=== PATIENT | male | born 1975 | race Caucasian/White ===

== ENCOUNTER 2022-08-10 14:39 | Outpatient (CLI) | payer BC, SELFPAY ==
--- NOTE | 2022-08-10 15:00 | CRLHL7_ITS ---
For Patients: As a result of the Century Cures Act, medical imaging exams and procedure reports are released immediately into your electronic medical record. You may view this report before your referring provider. If you have questions, please contact your health care provider. Indication: Umbilical pain and lump Technique: Ultrasound abdomen umbilical hernia Comparison: None Findings: Probable right-sided umbilical hernia with a 1.2 centimeter break in the he fascia. Impression: Probable right-sided umbilical hernia with a 1.2 centimeter break in the fascia Dictated by Tevin Al MD @ 08/10/2022 3:54:44 PM (Electronically Signed)
== END 2022-08-10 14:40 | disposition home or self-care (01) ==
PROVIDERS: PCP Family Medicine; Visit Provider Nurse Practitioner Family
DX: R10.9 Unspecified abdominal pain (principal); R19.00 Intra-abdominal and pelvic swelling, mass and lump, unspecified site
CPT/HCPCS: 76705

== ENCOUNTER 2022-08-24 13:35 | Outpatient (CLI) | payer BC, SELFPAY ==
[2022-08-24 22:15] LABS: Chloride* 105 mmol/L (96-114); Potassium* 4.9 mmol/L (3.6-5.1); Sodium* 140 mmol/L (135-149)
[2022-08-24 22:18] LABS: Blood Urea Nitrogen* 22 mg/dL (5-24); Carbon Dioxide* 30 mmol/L (20-32); Creatinine* 0.8 mg/dL (0.5-1.5); Estimated Glomerular Filt Rate 111 ml/min
[2022-08-24 22:19] LABS: Calcium* 9.4 mg/dL (8.4-10.6); Glucose* 97 mg/dL (60-115)
== END 2022-08-24 13:36 | disposition home or self-care (01) ==
LOC: FRMREF 13:38
PROVIDERS: PCP Family Medicine; Visit Provider Family Medicine
DX: Z01.818 Encounter for other preprocedural examination (principal); K42.9 Umbilical hernia without obstruction or gangrene
CPT/HCPCS: 80048

== ENCOUNTER 2022-08-31 06:19 | Day surgery (SDC) | payer BC, SELFPAY ==
[2022-08-31] VITALS (7 sets, daily range): BP systolic 113–135; BP diastolic 68–85; PULSE 56–63; RESP 16; TEMP 36.4–36.7; O2SAT 91–98; BMI 28.8
[2022-08-31] MEDS: LACTATED RINGERS 1000 ML 1,000 ML 100 ML IV (06:50)
[2022-08-31] MEDS: SODIUM CHLORIDE 0.9 % (FLUSH) 10 ML SYRINGE IVF (06:50)
--- NOTE | 2022-08-31 06:58 | SUR.PREOP ---
HOME COVID TEST NEGATIVE.
[2022-08-31] MEDS: CEFAZOLIN 1 GM inj IVP (07:54)
[2022-08-31] MEDS: BUPIVACAINE 0.25% 30 ML INJECTION (08:13)
--- NOTE | 2022-08-31 08:33 | P.GSOP_ITS ---
Operative Note Date of procedure: 08/31/22 Pre-op diagnosis: Umbilical hernia Post-op diagnosis: same Type of Procedure: Open umbilical hernia repair Procedure Description: After discussing the risks and benefits of the procedure, the patient signed informed consent.? The operative site was marked and the patient was brought to the operating room and placed on the operating table in supine position.? Care was taken to pad the patient's pressure points.?? The patient was then given sedation by anesthesia.?? The operative site was then prepped and draped in the usual sterile fashion.? A time-out was then performed. Local anesthetic was injected into the fascia, skin and subcutaneous tissues. A curvilinear incision was made at the umbilicus. Dissection was carried down into the subcutaneous tissue using cautery. The hernia sac was encountered and care was taken to not enter it. Dissection was taken down to the fascia, and the umbilical stalk was carefully dissected off of the hernia sac. The fascial defect was less than 1 cm and containing a small amount of fat. Because of the small size of the hernia, it was closed with 0 Nurolon suture in a vest-over- pants fashion. The umbilicus was reapproximated to the fascia with Vicryl. The skin was then closed with running absorbable suture. A sterile dressing was then applied. ? The patient was then woken and transported to the recovery area in stable condition. ? The patient tolerated the procedure well. Indications: The patient is a 47-year-old male who noted some firmness in his umbilicus. He was seen in urgent care an ultrasound showed a possible small fat containing umbilical hernia. He had significant pain with this which was limiting his activity and so after discussion of options he elected to proceed with repair. Findings: Small less than 1 cm fascial defect containing fat. Anesthesia: MAC Surgeon: Mehreen Holt MD Estimated blood loss (mL): 1 Condition: stable Disposition: same day
--- NOTE | 2022-08-31 08:47 | W.ANESCHARGE ---
Anesthesia Charges Start Date/Time Anesthesia Start Date: 08/31/22 Anesthesia Start Time: 07:48 Stop Date/Time Anesthesia Stop Date: 08/31/22 Anesthesia Stop Time: 08:44 Summary Emergency: No
[2022-08-31] MEDS: ACETAMINOPHEN 325 MG TABLET 650 MG PO (09:39)
== END 2022-08-31 10:25 | disposition home or self-care (01) ==
PROVIDERS: PCP Family Medicine; Visit Provider Surgery
PROC: (CPT 49591; principal; 2022-08-31 07:30)
DX: K42.9 Umbilical hernia without obstruction or gangrene (principal)
CPT/HCPCS: 49591; 00830; A9270; J0690; J2250; J2405; J2704; J3010; J3490; J7120

== ENCOUNTER 2023-11-19 18:04 | Emergency (ER) | payer BC, SELFPAY ==
[2023-11-19 18:17] VITALS: BP 135/85; PULSE 73; RESP 18; TEMP 36.4; O2SAT 99; BMI 28.1
--- NOTE | 2023-11-19 19:20 | CT_ITS ---
Patient: MARY WORLEY Facility:?[facility] Patient ID:?[id number] Site Patient [id number]:?[id number]. Site :?[id number] Study:?CT-Abdomen/Pelvis w/iv-11/19/2023 7:45:25 PM Ordering Physician:JHOANA Final Report: INDICATION: Left lower quadrant pain. TECHNIQUE: CT of the abdomen and pelvis acquired with 91 cc Isovue 370 IV contrast. Coronal and sagittal reconstructions. COMPARISON: None. FINDINGS: The liver, gallbladder, spleen, pancreas, and adrenal glands are negative. No biliary dilation. Hepatic and portal veins are patent. Symmetric enhancement of the kidneys. No hydronephrosis or ureteral dilation. No obstructing urinary calculi identified. No bladder wall thickening. Nonenlarged prostate gland. No small bowel dilation. There is diffuse colonic wall thickening and pericolonic fat stranding greatest in the ascending and transverse colon. Findings are compatible with a nonspecific colitis. Fluid throughout the colon which can be seen with diarrhea. Negative appendix. No intraperitoneal free air or fluid. No lymphadenopathy. The lung bases are clear. The bones are unremarkable. IMPRESSION: Diffuse inflammatory changes of the colon compatible with a nonspecific colitis. Please note that all CT scans at this facility use dose modulation, iterative reconstruction, and/or weight-based dosing when appropriate to reduce radiation dose to as low as reasonably achievable. Dictated by Brittney Jeffries MD @ 11/19/2023 8:07:29 PM Signed by:?Brittney Jeffries MD @11/19/2023 8:07:29 PM (Electronic Signature)
--- NOTE | 2023-11-19 19:21 | ED_ITS ---
HPI - General Adult General Chief complaint: Diarrhea Stated complaint: Abdominal pain Time Seen by Provider: 11/19/23 19:10 History of Present Illness HPI narrative: This 48-year-old male comes in reporting abdominal pain with diarrhea. He reports some severe abdominal cramps with a baseline constant pain that began this morning. He is also had some diarrhea and reports little bit of blood he noted in the diarrhea occasionally today. He had wisdom teeth removed a week or so ago and has been taking an antibiotic and did have a few small episodes of diarrhea related to this. His symptoms today however are much more pronounced. He did measure his temperature and states that the highest that he measured was 100? F. he did have some nausea this morning but no vomiting. Related Data Home Medications Medication Instructions Recorded Confirmed amoxicillin 875 mg tablet 875 mg PO BID 11/13/23 11/13/23 metronidazole 250 mg tablet mg PO BID 11/13/23 11/13/23 Allergies Allergy/AdvReac Type Severity Reaction Status Date / Time No Known Drug Allergies Allergy Verified 07/20/23 09:17 Review of Systems Status of ROS: Reports: 10 or more systems reviewed and unremarkable except as noted in History and below Narrative: Constitutional: No fevers, no weight gain or loss. Eyes: No discharge. No vision changes. HENT: No congestion, no sore throat, no ear pain. Cardiovascular: No chest pain, no palpitations. Respiratory: No shortness of breath, no wheezes, no cough. Gastrointestinal: Abdominal pain with diarrhea as described above. Genitourinary: No dysuria, no hematuria. Musculoskeletal: Normal range of motion. Skin: No rashes, no pruritis. Neurological: No dizziness, weakness, sensory change, speech change. Endo/Heme/Allergies: No bruising or bleeding. No polydipsia. Pysch: no suicidality, no anxiety, no insomnia. All other systems reviewed and are negative. 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 He does not currently drink alcohol. 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 Smoking Status: Former smoker What tobacco products do you use: cigarettes Smoking quit date/years: <= 15 years ago Do you use any of these nicotine containing products: None How often do you have a drink containing alcohol: never How often do you have six or more drinks on one occasion: Never AUDIT-C Alcohol total score: 0 Non-prescribed substance use: denies use Caffeine: Yes (daily) Exam Narrative: Exam Narrative: Constitutional: Well-developed, well-nourished, no acute distress. HEENT: Normocephalic, atraumatic. Neck: Normal range of motion. Nontender. Supple. Heart: Regular. No murmurs. Normal rate. Intact distal pulses. Lungs: Clear to auscultation. No chest discomfort. No wheezes, rhonchi, or rales. Abdomen: Normal bowel sounds. Tenderness in the left abdomen and left lower quadrant. No rebound tenderness. Genitalia: Deferred. Back: No midline tenderness. Normal range of motion. Extremities: Normal range of motion. No injury. Skin: Intact. No rash. Warm. No erythema or pallor. Neurologic: No altered sensation. No weakness. Alert and oriented. Psychiatric: No suicidality. No anxiety or depression. No insomnia. Nursing notes and vitals signs are reviewed. Const: Vital Signs, click to edit/add: Vital Signs - 24 hr 11/19/23 18:17 11/19/23 19:26 11/19/23 20:32 Temperature 97.5 F L 98.2 F Pulse Rate [Right Pulse Oximeter] 73 71 Respiratory Rate 18 16 Blood Pressure [Ri ght Upper Arm] 135/85 140/88 H Pulse Oximetry 99 99 Oxygen Delivery Me thod Room Air Room Air Course Vital Signs Vital signs: Initial Vital Signs Temperature 97.5 F L 11/19/23 18:17 Temperature Source Temporal Artery Scan 11/19/23 18:17 Pulse Rate 73 11/19/23 18:17 Respiratory Rate 18 11/19/23 18:17 Blood Pressure 135/85 11/19/23 18:17 Blood Pressure Mean 101 11/19/23 18:17 Blood Pressure Position Sitting 11/19/23 18:17 Pulse Oximetry 99 11/19/23 18:17 Oxygen Delivery Method Room Air 11/19/23 18:17 Vital Signs Temperature 97.5 F L 11/19/23 18:17 Pulse Rate 73 11/19/23 18:17 Respiratory Rate 18 11/19/23 18:17 Blood Pressure 135/85 11/19/23 18:17 Pulse Oximetry 99 11/19/23 18:17 Oxygen Delivery Method Room Air 11/19/23 18:17 Temperature 98.2 F 11/19/23 20:32 Pulse Rate 71 11/19/23 19:26 Respiratory Rate 16 11/19/23 19:26 Blood Pressure 140/88 H 11/19/23 19:26 Pulse Oximetry 99 11/19/23 19:26 Oxygen Delivery Method Room Air 11/19/23 19:26 Medications Administered Medications: Generic Name Dose Route Start Last Admin Trade Name Freq PRN Reason Stop Dose Admin Sodium Chloride 1,000 mls @ 1,000 mls/hr 11/19/23 20:30 11/19/23 20:33 0.9 % Sodium Chloride 1000 Ml IV 11/19/23 21:29 Infused .Q1H JORDI Infusion Ketorolac Tromethamine 30 mg 11/19/23 19:20 11/19/23 19:25 Ketorolac 30 Mg/Ml Inj IVP 11/19/23 19:21 30 mg ONCE ONE Administration Ondansetron HCl 4 mg 11/19/23 19:20 11/19/23 19:25 Ondansetron 2 Mg/Ml Inj IVP 11/19/23 19:21 4 mg ONCE ONE Administration Medical Decision Making MDM Narrative Medical decision making narrative: This patient comes in with diarrhea and abdominal pain as described above. An IV was established where he did receive a L of normal saline along with Toradol 30 mg, Zofran 4 mg. Labs are obtained and returned with reassuring findings. Additionally CT scan of the abdomen and pelvis returns with no acute findings to explain his symptoms. This patient more likely has a gastroenteritis. He states that he is feeling much better. He is okay to be discharged home. He did receive [facility] prescriptions for Toradol and Zofran. Lab Data Labs: Lab Results 03/25/24 Range/Units 19:15 WBC 10.54 (4.50-11.00) K/uL RBC 5.02 (4.30-5.90) m/uL Hgb 15.8 (13.5-17.5) gm/dL Hct 47.1 (37.0-53.0) % MCV 94 (80-100) fL MCH 32 (26-34) pg MCHC 34 (32-36) gm/dL RDW Coeff of Tamera 12.3 (11.5-15.5) % Plt Count 331 (140-440) K/uL Neut % (Auto) 81.5 H (42.0-72.0) % Lymph % (Auto) 11.3 L (20-44) % Runnels % (Auto) 6.2 (0.0-11.0) % Eos % (Auto) 0.5 (0.0-7.0) % Baso % (Auto) 0.4 (0.0-3.0) % Neut # (Auto) 8.60 H (1.7-7.0) K/uL Lymph # (Auto) 1.20 (0.90-2.90) K/uL Runnels # (Auto) 0.70 (0.00-0.90) K/UL Eos # (Auto) 0.05 (0.00-0.50) K/uL Baso # (Auto) 0.04 (0.00-0.30) K/uL Abs Immat Gran (auto) 0.01 (0.00-0.30) K/uL Imm/Tot Granulo (auto) 0.1 % Sodium 139 (135-149) mmol/L Potassium 4.2 (3.6-5.1) mmol/L Chloride 104 (96-114) mmol/L Carbon Dioxide 23 (20-32) mmol/L Anion Gap 12 (7-15) mEq/L BUN 14 (5-24) mg/dL Creatinine 0.8 (0.5-1.5) mg/dL Estimated Creat Clear 111.63 Estimated GFR 111 ml/min Glucose 130 H (60-115) mg/dL Calcium 9.9 (8.4-10.6) mg/dL Discharge Plan Discharge Clinical Impression: Gastroenteritis Patient Disposition: Home, Self-Care Condition: Improved Additional Instructions: Take medications as needed and directed. Follow up with or return if worsening. Prescriptions: No Action amoxicillin 875 mg tablet 875 mg PO BID metronidazole 250 mg tablet PO BID Follow Up/Referrals: Jimena Sage MD [Primary Care Provider] - Stand Alone Forms: [employer] Info Instructions
[2023-11-19] MEDS: ONDANSETRON 2 MG/ML inj 4 MG IVP (19:25)
[2023-11-19] MEDS: KETOROLAC 30 MG/ML inj IVP (19:25)
[2023-11-19 19:26] VITALS: BP 140/88; PULSE 71; RESP 16; O2SAT 99
[2023-11-19] MEDS: 0.9 % SODIUM CHLORIDE 1000 ml 1,000 ML IV (19:30)
[2023-11-19 19:41] LABS: Basophils Absolute Auto 0.04 K/uL (0.00-0.30); Basophils Percent Auto 0.4 % (0.0-3.0); Eosinophils Absolute Auto 0.05 K/uL (0.00-0.50); Eosinophils Percent Auto 0.5 % (0.0-7.0); Hematocrit 47.1 % (37.0-53.0); Hemoglobin* 15.8 gm/dL (13.5-17.5); Immature Granulocytes Abs Auto 0.01 K/uL (0.00-0.30); Immature Granulocytes Pct Auto 0.1 %; Lymphocytes Percent Auto 11.3 % (20-44); Mean Corpuscular HGB Conc 34 gm/dL (32-36); Mean Corpuscular Hemoglobin 32 pg (26-34); Mean Corpuscular Volume 94 fL (80-100); Monocytes Percent Auto 6.2 % (0.0-11.0); Neutrophils Percent Auto 81.5 % (42.0-72.0); Platelet Count* 331 K/uL (140-440); RDW Coefficient of Variation % 12.3 % (11.5-15.5); Red Blood Count 5.02 m/uL (4.30-5.90); White Blood Count* 10.54 K/uL (4.50-11.00)
[2023-11-19 19:49] LABS: Chloride* 104 mmol/L (96-114); Sodium* 139 mmol/L (135-149)
[2023-11-19 19:50] LABS: Potassium* 4.2 mmol/L (3.6-5.1)
[2023-11-19 19:52] LABS: Anion Gap 12 mEq/L (7-15); Carbon Dioxide* 23 mmol/L (20-32); Creatinine* 0.8 mg/dL (0.5-1.5); Est. Creatinine Clearance* 111.63; Estimated Glomerular Filt Rate 111 ml/min
[2023-11-19 19:53] LABS: Blood Urea Nitrogen* 14 mg/dL (5-24); Calcium* 9.9 mg/dL (8.4-10.6); Glucose* 130 mg/dL (60-115)
[2023-11-19 19:54] LABS: Slide Review Reflex No
[2023-11-19 20:32] VITALS: TEMP 36.8
[2023-11-19 20:50] VITALS: BP 135/78; PULSE 79; RESP 16; TEMP 36.8; O2SAT 99
[2023-11-19 20:52] VITALS: BP 135/78; PULSE 79; RESP 16; TEMP 36.8
== END 2023-11-19 20:52 | disposition home or self-care (01) ==
PROVIDERS: Emergency Provider Emergency Medicine Emergency Medical Services; PCP Family Medicine
DX: K52.9 Noninfective gastroenteritis and colitis, unspecified (principal)
CPT/HCPCS: 36415; 74177; 80048; 85025; 96374; 96375; 99283; 99284; J1885; J2405; J7030; Q9967